=== PATIENT | female | born 1985 | race Caucasian/White ===

== ENCOUNTER 2020-01-09 15:33 | Emergency (ER) | payer OTHER, SELFPAY ==
[2020-01-09 15:48] VITALS: BP 121/99; PULSE 103; RESP 20; TEMP 36.7; O2SAT 100
--- NOTE | 2020-01-09 15:51 | ED.DENTAL ---
HPI - Dental/Oral General Chief complaint: Dental/Oral Stated complaint: Tooth Ache Time Seen by Provider: 01/09/20 15:51 Source: patient and RN notes reviewed History of Present Illness HPI Narrative: Patient is a 34-year-old female that presents the urgent care with complaints of dental infection to the lower right teeth. Patient states that she was seen on January 05 for the same issue in [place], [place] and was unable to pay the $33 for her clindamycin prescription. Patient states that she has poor dental health and was supposed to be getting all of her teeth removed but she stopped going . Patient states that this is been ongoing for months and the pain is increased over the last couple weeks. Patient denies any known fever, chills, nausea, vomiting. Patient has not taken anything for her symptoms [id number]. No other acute complaints. No acute distress noted. Patient read the plan of care. Teeth map: 1. Complete avulsions to the anterior aspect of both tooth #25 and 26, and dental caries with mild surrounding erythema 2. Complete anterior avulsion with large dental caries Related Data Allergies Allergy/AdvReac Type Severity Reaction Status Date / Time No Known Allergies Allergy Verified 01/09/20 15:35 Review of Systems Review of Systems: Narrative: CONSTITUTIONAL: Denies fever, chills, or sweats. EYES: Denies visual changes, redness, or discharge. ENT: Denies rhinorrhea, congestion, sore throat, or otalgia. Reports of lower right dental pain CARDIOVASCULAR: Denies chest pain, palpitations, or edema. RESPIRATORY: Denies cough or dyspnea. GASTROINTESTINAL: Denies abdominal pain, nausea, vomiting, or diarrhea. GENITOURINARY: Denies dysuria or hematuria. SKIN: Denies rash or itching. MUSCULOSKELETAL: Denies back pain, joint pain, or myalgia. NEUROLOGIC: Denies headache, numbness, or weakness. All other systems reviewed are negative, except as documented in HPI. PMFSH Social History Social History Gender identity (if verbalized by the patient): Male Comments At the time of my signature, I reviewed and agree with the nursing past medical, surgical, social, and family history. There is no relevant family history pertinent to the patient complaint. Exam Narrative: Exam Narrative: GENERAL: This is a well-nourished, well-developed patient, in no apparent distress. HEAD: normocephalic, atraumatic. EYES: PERRL. Sclera clear/white. Vision is grossly intact. EARS: External ears normal NOSE: External nose normal with no obvious nasal discharge DENTAL: Complete avulsions to the anterior aspect of tooth #25 through tooth #27 with large dental caries noted. Nerve exposure is very likely. Mild surrounding erythema. Notable poor dentition throughout. THROAT: Mucous membranes moist, posterior pharynx clear. NECK: Neck supple CARDIOVASCULAR: Regular rate and rhythm without murmurs, gallops, or rubs. RESPIRATORY: Clear to auscultation. Breath sounds equal bilaterally. No wheezes, rales, or rhonchi. SKIN: warm, intact with no suspicious lesions or rash, good texture and turgor. NEURO: awake, alert, and oriented to person, place and time. There were no obvious focal neurologic abnormalities. EXTREMITIES: No clubbing, cyanosis, or edema. Course Vital Signs Vital signs: Vital Signs Temperature 98.0 F 01/09/20 15:48 Pulse Rate 103 H 01/09/20 15:48 Respiratory Rate 20 01/09/20 15:48 Blood Pressure 121/99 H 01/09/20 15:48 Pulse Oximetry 100 01/09/20 15:48 Temperature 98.0 F 01/09/20 15:48 Pulse Rate 103 H 01/09/20 15:48 Respiratory Rate 20 01/09/20 15:48 Blood Pressure 121/99 H 01/09/20 15:48 Pulse Oximetry 100 01/09/20 15:48 Reviewed?patient is informed that they may have pre-hypertension or hypertension based on a blood pressure reading in the department. I recommend the patient call the primary care provider listed on their discharge instructions or a physician of their choice this week to arra
== END 2020-01-09 16:03 | disposition home or self-care (01) ==
PROVIDERS: Emergency Provider Nurse Practitioner Family
DX: A69.1 Other Vincent's infections (principal); K02.9 Dental caries, unspecified; S02.5XXA Fracture of tooth (traumatic), initial encounter for closed fracture; X58.XXXA Exposure to other specified factors, initial encounter
CPT/HCPCS: 99213; G0463

== ENCOUNTER 2020-03-18 21:42 | Emergency (ER) | payer OTHER, SELFPAY ==
[2020-03-18 21:44] VITALS: BP 143/77; PULSE 115; RESP 19; TEMP 36.6; O2SAT 100
--- NOTE | 2020-03-18 23:43 | PC.NURSE ---
When Karri DEE entered pt.'s room at apprx. 2220 pt. was gone. Pt. was given time to return but did not. Other staff reported seeing someone leave via ambulance bay doors.
== END 2020-03-18 22:30 | disposition left against medical advice (07) ==
DX: S39.92XA Unspecified injury of lower back, initial encounter (principal); V43.62XA Car passenger injured in collision with other type car in traffic accident, initial encounter
CPT/HCPCS: 99199

== ENCOUNTER 2020-10-15 14:28 | Emergency (ER) | payer OTHER, SELFPAY ==
[2020-10-15 14:32] VITALS: BP 140/72; PULSE 95; RESP 20; TEMP 37; O2SAT 99
--- NOTE | 2020-10-15 15:10 | ED.DENTAL ---
HPI - Dental/Oral General Chief complaint: Dental/Oral Stated complaint: tooth pain Time Seen by Provider: 10/15/20 14:32 Source: patient Mode of arrival: ambulatory Limitations: no limitations History of Present Illness HPI Narrative: Patient presents the emergency department for toothache x1 week. Reports she has several bad teeth and that they are going to be pulled in a couple of weeks. Presents today for worsening left upper toothache. Reports she has been taking clindamycin 150 mg 4 times daily for the last week without relief. Denies fever or drainage. MD Complaint: tooth pain Location: Tooth # (11) Related Data Home Medications Medication Instructions Recorded Confirmed clindamycin HCl 10/15/20 Allergies Allergy/AdvReac Type Severity Reaction Status Date / Time amoxicillin Allergy Rash Verified 10/15/20 14:35 ibuprofen Allergy Rash Verified 10/15/20 14:35 Penicillins Allergy Rash Verified 10/15/20 14:35 Review of Systems Review of Systems: Narrative: CONSTITUTIONAL: Denies fever ENT: Reports dentalgia All systems reviewed & are unremarkable except as noted in HPI and below PMFSH Past Medical History Medical History (Updated 10/15/20 @ 16:27 by Katarzyna Styles PA-C) History of anxiety Surgical History Surgical History (Updated 10/15/20 @ 15:14 by Katarzyna Styles PA-C) History of appendectomy History of cholecystectomy Social History Social History Gender identity (if verbalized by the patient): Female Exam Narrative: Exam Narrative: GENERAL: Well-appearing, well-nourished, and in no acute distress. HEAD: Normocephalic, atraumatic. EYES: EOMI. ENT: Mucous membranes moist. Oropharynx without tonsillar hypertrophy exudate or other lesions. Bilateral TMs pearly choudhury non-bulging. Poor dentition. Tooth #11 tender to palpation with possible very small (0.5cm) abscess NECK: Supple. No adenopathy or masses. CHEST: Clear to auscultation. No respiratory distress. No wheezes rales or rhonchi HEART: Regular rate and rhythm. No murmur heard. Normal peripheral pulses. EXTREMITIES: Normal range of motion. No edema. SKIN: Warm, dry, no rash. NEURO: No focal deficits. Alert and oriented x3. PSYCH: Normal mood and affect Course Vital Signs Vital signs: Vital Signs Temperature 98.6 F 10/15/20 14:32 Pulse Rate 95 10/15/20 14:32 Respiratory Rate 20 10/15/20 14:32 Blood Pressure 140/72 10/15/20 14:32 Pulse Oximetry 99 10/15/20 14:32 Temperature 98.6 F 10/15/20 15:47 Pulse Rate 95 10/15/20 14:32 Respiratory Rate 20 10/15/20 14:32 Blood Pressure 140/72 10/15/20 14:32 Pulse Oximetry 99 10/15/20 14:32 MDM - Dental/Oral MDM Narrative Medical decision making narrative: Patient presents to the ER for dental pain. Spoke with patient about plan of I&D of very small dental abscess. She eloped after I saw her, prior to procedure Critical Care Time Critical Care Time Critical Care Time: No Discharge Plan Discharge Clinical Impression: Dental abscess Patient Disposition: Elopement After Seen by Prov Condition: Stable Prescriptions: No Action clindamycin HCl 150 mg capsule RF: 0 Follow-up/Referrals: PHYSICIAN,[employer] OPERATOR [Primary Care Provider] -
[2020-10-15] MEDS: HYDROcodone/acetaminophen (*CRX) 5-325 MG TABLET 1 TAB PO (15:16)
[2020-10-15 15:47] VITALS: TEMP 37
== END 2020-10-15 16:18 | disposition left against medical advice (07) ==
PROVIDERS: Emergency Provider Emergency Medicine
DX: K04.7 Periapical abscess without sinus (principal)
CPT/HCPCS: 99283; A9270